=== PATIENT | female | born 1965 | race Caucasian/White ===

== ENCOUNTER → 2019-01-13 09:08 | Outpatient (CLI) | payer BC, SELFPAY ==
[2017-01-07 22:11] VITALS: BMI 40.8
[2019-01-13 10:11] LABS: Absolute Lymphocyte Count 1.13 X10^3/ul (0.83-4.51); Basophil# 0.04 X10^3/uL; Basophil% 0.9 % (0-1); Eosinophils% 2.2 % (0-5); Hematocrit 48.7 % (37-47); Hemoglobin 16.3 g/dl (12.0-15.0); Lymphocyte # 1.13 X10^3/ul (4.0); Lymphocyte % 24.3 % (19-41); Mean Corp Hgb Conc 33.5 g/gl (32-36); Mean Corpuscular Hgb 30.3 pg (27.0-32.0); Mean Corpuscular Volume 90.5 fL (81-99); Mean Platelet Vol. 9.4 fl (6.2-12.0); Monocyte# 0.38 X10^3/uL; Monocyte% 8.2 % (0-10); Neutrophil # 2.99 X10^3/uL (2.7-7.7); Neutrophil % 64.2 % (47-70); Platelet Count 222 K/mm3 (150-450); RBC Distribution Width CV 13.1 % (11.6-14.6); RBC Distribution Width SD 43.4 fl (35.1-43.9); Red Blood Count 5.38 M/mm3 (4.2-5.4); White Blood Count 4.7 K/mm3 (4.4-11.0)
[2019-01-13 10:12] LABS: POSITIVE COUNT NO; POSITIVE DIFFERENTIAL NO; POSITIVE MORPHOLOGY NO
[2019-01-13 10:47] LABS: Hemoglobin A1c 5.2 % (4.2-6.3)
[2019-01-13 11:00] LABS: BUN 20 mg/dL (7-18); Creatinine, Serum 0.54 mg/dL (0.55-1.02); EST Glomerular Filtration Rate 125 mL/min (>60); Glucose 84 mg/dL (74-106)
[2019-01-13 11:01] LABS: ALB/GLOB Ratio 1.2 RATIO (0.9-2.4); AST(SGOT) 15 U/L (15-37); Alanine Aminotransfer ALT/SGPT 24 U/L (13-56); Albumin, Serum 4.1 g/dL (3.2-5.0); Alkaline Phosphatase 96 U/L (45-117); Anion Gap 5 (5-15); BUN/Creat Ratio 37.3 RATIO (10-20); Calcium,Total 9.1 mg/dL (8.5-10.1); Chloride 106 mmol/L (98-107); Cholesterol 142 mg/dL (200); Est Glom Filt Rate - Afr Amer 152 mL/min (>60); Globulin 3.4 g/dL (2.2-4.2); High Density Lipoprotein 54 mg/dL; Potassium 4.6 mmol/L (3.5-5.1); Protein, Total 7.5 g/dL (6.4-8.2); Sodium Level 139 mmol/L (136-145); Thyroid Stim Hormone (TSH) 0.95 uIU/mL (0.358-3.74); Triglycerides 58 mg/dL; Very Low Density Lipoprotein 12 mg/dL (5-40)
== END ==
PROVIDERS: Family Provider Nurse Practitioner; PCP Nurse Practitioner; Referring Provider Registered Nurse; Visit Provider Registered Nurse
DX: R55 Syncope and collapse (principal)
CPT/HCPCS: 36415; 80053; 80061; 83036; 84443; 85025

== ENCOUNTER 2019-12-01 18:35 | Emergency (ER) | payer BC, SELFPAY ==
[2019-12-01 18:38] VITALS: BP 154/94; PULSE 78; RESP 18; TEMP 36.9; O2SAT 99; BMI 39.8
--- NOTE | 2019-12-01 19:01 | EKG12_ITS ---
Test Reason : CP Blood Pressure : / mmHG Vent. Rate : 073 BPM Atrial Rate : 073 BPM P-R Int : 134 ms QRS Dur : 084 ms QT Int : 398 ms P-R-T Axes : 011 000 043 degrees QTc Int : 438 ms Normal sinus rhythm Minimal voltage criteria for LVH, may be normal variant Cannot rule out Anterior infarct , age undetermined Abnormal ECG Confirmed by EDGAR ALONZO, PEREZ ([id number]), map editor USAMA VELAZQUEZ ([id number]) on 12/04/2019 12:55:14 PM Referred By: Confirmed By:PEREZ HERNÁNDEZ MD
--- NOTE | 2019-12-01 19:15 | RAD_ITS ---
STUDY: X-RAY CHEST REASON FOR EXAM: Female, 54 years old. Chest pain pain in the region of the left scapula. Shortness of breath. TECHNIQUE: Single AP portable view of the chest. COMPARISON: None. FINDINGS: The lungs are clear and expanded. There is no demonstrated pleural abnormality. Normal size heart. Normal mediastinum and polo. Normal visualized pulmonary arteries. Normal visualized aortic arch and descending thoracic aorta. Neck are obscured Normal visualized ribs, clavicles, and shoulders. There is no demonstrated abnormality of the visualized soft tissue structures of the upper abdomen. RAD/Chest 1 View (Portable) IMPRESSION: No acute cardiopulmonary disease. Electronically Signed: Daniel Moreno DO at 19:30 EST Tel [phone], Service support ,
[2019-12-01 19:40] LABS: Absolute Lymphocyte Count 1.35 X10^3/uL (0.83-4.51); Absolute Neutrophil Count 3.8 X10^3/uL (2.0-7.7); Basophil# 0.05 X10^3/uL; Basophil% 0.9 % (0-1); Eosinophil# 0.07 X10^3/uL; Eosinophils% 1.2 % (0-5); Hematocrit 50.5 % (37-47); Hemoglobin 16.7 g/dL (12.0-15.0); Lymphocyte # 1.35 X10^3/ul (4.0); Lymphocyte % 23.4 % (19-41); Mean Corp Hgb Conc 33.1 g/dL (32-36); Mean Corpuscular Hgb 29.3 pg (27.0-32.0); Mean Corpuscular Volume 88.6 fL (81-99); Mean Platelet Vol. 9.4 fl (6.2-12.0); Monocyte# 0.46 X10^3/uL; NRBC Flagged by Analyzer 0 % (0-5); Neutrophil # 3.84 X10^3/uL (2.7-7.7); Neutrophil % 66.3 % (47-70); Platelet Count 218 K/mm3 (150-450); RBC Distribution Width CV 13.7 % (11.6-14.6); RBC Distribution Width SD 44.2 fl (35.1-43.9); White Blood Count 5.8 K/mm3 (4.4-11.0)
[2019-12-01 20:04] LABS: Anion Gap 7 (5-15); BUN 19 mg/dL (7-18); BUN/Creat Ratio 30.7 RATIO (10-20); Calcium,Total 9.7 mg/dL (8.5-10.1); Chloride 107 mmol/L (98-107); Creatinine, Serum 0.62 mg/dL (0.55-1.02); EST Glomerular Filtration Rate 106 mL/min (>60); Est Glom Filt Rate - Afr Amer 128 mL/min (>60); Estimated Creatinine Clearance 87.49 ml/min; Glucose 89 mg/dL (74-106); Potassium 3.9 mmol/L (3.5-5.1); Sodium Level 142 mmol/L (136-145)
[2019-12-01 20:49] VITALS: BP 144/87; PULSE 81; RESP 11; O2SAT 99
--- NOTE | 2019-12-01 21:23 | CT_ITS ---
STUDY: CTA CHEST REASON FOR EXAM: Female, 54 years old. Dyspnea on exertion. RADIATION DOSAGE (If Supplied By Facility): CTDIvol = ( 12.38 ) mGy, DLP = ( 537.16 ) mGycm TECHNIQUE: The examination was performed with the intravenous administration of Isovue 370 100ml. Post-processing of the angiographic images was performed, with multiplanar reformation and 3D reconstruction. Individualized dose optimization techniques were used for this CT. COMPARISON: Chest, December 01, 2019. FINDINGS: Normal enhancement of the main pulmonary artery and right and left pulmonary arteries. Normal enhancement of the bilateral peripheral pulmonary arteries. There is no demonstrated pulmonary embolism. Normal thoracic aorta and visualized great vessels. There is no demonstrated aortic dissection. Normal heart and pericardium. Normal mediastinum. Normal hilar regions. Normal visualized trachea and bronchi. The lungs are well expanded. Normal pulmonary parenchyma. Normal pleura. Normal chest wall structures. There is a prominent left thyroid lobe which extends to the below the renal notch. Degenerative changes of the thoracic spine. Normal visualized upper abdomen. CT/CTA Chest W/WO Contrast IMPRESSION: Normal CTA chest examination, without a demonstrated pulmonary embolism or arterial dissection. Electronically Signed: Daniel Moreno DO at 22:04 EST Tel [phone], Service support ,
[2019-12-01 21:52] VITALS: PULSE 80; RESP 13
[2019-12-01] MEDS: Ipratropium/Albuterol Sulfate 3 ML AMPUL.NEB INHALATION (21:53)
[2019-12-01 22:00] VITALS: BP 148/82; PULSE 75; RESP 21; O2SAT 96
[2019-12-02] VITALS: BP 151/72; PULSE 71; RESP 12; O2SAT 99
--- NOTE | 2019-12-02 00:29 | ED.DCSUM_ITS ---
- ER Visit Summary Date of Service: 12/02/19 Chief Complaint: Shortness of breath History of Present Illness: The patient is a 54 F presents with shortness of breath that is been getting worse over the past 2 days. Patient states her breathing is worse with lying flat and improves with yawning. Patient states her blood pressures have also been running high lately. Patient denies any cough. Patient denies any sore throat. Patient denies any chest pain. Patient denies any fevers or chills. Patient denies any nausea or vomiting. Patient does admit to some tingling in her bilateral hands and face. Physical Examination: Vital signs are stable. Patient is afebrile. Patient is in no acute distress. Oral mucosa is pink and moist. Neck is supple. Trachea is midline. There is no JVD noted. Heart was regular rate and rhythm. Lungs are clear and equal bilaterally. Abdomen is soft. Bowel sounds are normal. There is no tenderness. There is no rebound or guarding noted. Skin is warm dry. Cranial nerves II through XII are intact. There are no focal motor or sensory deficits noted. Extremities are intact. There is no calf tenderness or edema. Test Results: EKG showed normal sinus rhythm with a rate of 73. There are no acute ST or T wave changes. This was unchanged compared to previous EKG dated 01/07/2017. CBC and basic metabolic profile were within normal limits. Troponin was normal. Given the patient's persistence of her symptoms, CTA of the chest was obtained. There is no evidence of PE or aortic dissection. Emergency Department Course and Treatment: Patient was given a DuoNeb here. Patient felt better on reevaluation. Patient was advised of her lab and CT findings. Patient was given a prescription for an albuterol inhaler. Patient was instructed to follow-up with her primary care physician in 5 to 7 days. Patient understood and was agreeable with the plan. All questions were answered. Disposition: Discharge home Impression: Dyspnea This note was generated with CAD Best dictation software. It may contain incorrect words, spelling, and punctuation that were not noted in review of the chart prior to signing ED Disposition - Plan for ED Patient: Disposition: Home or Assisted Living Diagnosis: Dyspnea Instructions: ED Dyspnea Prescriptions: Albuterol Inhaler [Ventolin Hfa] 1 - 2 puff INHALATION Q4H PRN PRN #1 inhaler PRN Reason: Wheezing Prescription Printed Referrals: Mar Samuels, [employer] [Primary Care Provider] - 3-5 Days
[2019-12-02 01:02] VITALS: BP 135/80; PULSE 71; RESP 17; O2SAT 94
== END 2019-12-02 01:02 | disposition home or self-care (01) ==
PROVIDERS: Emergency Provider Emergency Medicine; Family Provider Nurse Practitioner; PCP Nurse Practitioner
DX: R06.00 Dyspnea, unspecified (principal); R20.2 Paresthesia of skin; M54.9 Dorsalgia, unspecified; M54.2 Cervicalgia; E66.9 Obesity, unspecified
CPT/HCPCS: 71045; 71275; 80048; 84484; 85025; 93005; 94640; 99284; Q9967; A4216

== ENCOUNTER 2021-05-28 07:10 | Emergency (ER) | payer BC, SELFPAY ==
[2021-05-28 07:11] VITALS: BP 160/119; PULSE 84; RESP 16; TEMP 35.8; O2SAT 96; BMI 38.9
--- NOTE | 2021-05-28 07:20 | CT_ITS ---
STUDY: CT BRAIN WITHOUT CONTRAST REASON FOR EXAM: Female, 56 years old. Paresthesias RADIATION DOSAGE (If Supplied By Facility): CTDIvol = ( 44.99 ) mGy, DLP = ( 779.24 ) mGycm TECHNIQUE: Transaxial CT imaging of the brain was performed without administration of intravenous contrast material. Individualized dose optimization techniques were used for this CT. COMPARISON: No relevant priors. FINDINGS: Normal soft tissue structures. Normal calvarium. Normal size ventricles and extra-axial spaces for the patient''s age. Normal white matter tracts of the cerebral hemispheres. Normal basal ganglia and thalami. Normal brainstem. Normal cerebellum. There is no intracranial hemorrhage. There are no findings of an acute ischemic infarction. Normal visualized paranasal sinuses. CT/Brain/Head without Contrast IMPRESSION: Normal unenhanced CT scan of the brain. Electronically Signed: Luke Wilson MD at 8:03 EDT , Service support ,
--- NOTE | 2021-05-28 07:20 | EKG12_ITS ---
Test Reason : NEURO S/SX Blood Pressure : / mmHG Vent. Rate : 069 BPM Atrial Rate : 069 BPM P-R Int : 144 ms QRS Dur : 084 ms QT Int : 400 ms P-R-T Axes : 003 004 035 degrees QTc Int : 428 ms Normal sinus rhythm Normal ECG Confirmed by GLEN ALONZO, KRYSTYNA ([id number]), medical editor YEFRI FIORE ([id number]) on 06/04/2021 1:01:06 PM Referred By: SHERINE Confirmed By:KRYSTYNA CARROLL MD
--- NOTE | 2021-05-28 07:21 | EX.ED.DYSGE1 ---
HPI History of Present Illness Chief Complaint: Numb/Ting Informant: patient Onset/Context/Timing Onset: Today Current Severity: Mild Maximum Severity: Mild Narrative Narrative: Patient presents secondary to numbness and tingling in her upper body. Patient states she woke between 3 and 4 AM this morning just not quite feeling right. She states it was almost an internal anxiety feeling. She denied pain but states if anything there was some heaviness in her body. She then noticed numbness and tingling across her chest, bilateral arms, neck, and face. No difficulty speaking. No difficulty with motor control. Patient states she did have a glass of red wine just before bed last night. She felt fine at that time. She has noted increased stress for the last year and a half. [facility] Medical History (Updated 05/28/21 @ 10:[address] Bernice Sheth MD) Seasonal allergies Home Medications Ashwagandha 1 tab PO DAILY 12/01/19 [History Last Taken Unknown] glucosamine sulfate 2KCl 500 mg PO DAILY 12/01/19 [History Last Taken Unknown] loratadine 10 mg PO DAILY 12/01/19 [History Last Taken Unknown] albuterol sulfate 1 - 2 puff INHALATION Q4H PRN PRN #1 inhaler 12/02/19 [Rx Last Taken Unknown] Allergy/AdvReac Type Severity Reaction Status Date / Time Penicillins [PCN] Allergy Anaphylaxis Verified 05/28/21 07:11 Sulfa (Sulfonamide Allergy Unknown Verified 05/28/21 07:11 Antibiotics) Social History Smoking Status: Never smoker ROS ROS ED Constitutional Constitutional ED: Denies chills or fever(s) Eyes Eyes: Denies change in vision ENT ENT ED: Denies sore throat Cardiovascular Cardiovascular: Denies chest pain Respiratory/Chest Respiratory/Chest: Denies cough or dyspnea Gastrointestinal Gastrointestinal: Denies abdominal pain, diarrhea, nausea or vomiting Genitourinary Genitourinary ED: Denies dysuria Musculoskeletal Musculoskeletal: Denies back pain Integumentary Denies rash Neurologic Neurologic: Reports paresthesias; Denies headache(s) or weakness Psychiatric Psychiatric: Denies anxiety or depression Endocrine Endocrinology: Denies polydipsia or polyuria Allergic/Immunologic Allergic/Immunologic ED: Denies urticaria EXAM Physical Exam Const Vital Signs: 05/28/21 07:11 05/28/21 08:57 Temperature 96.4 F L Temperature Source Temporal Pulse Rate 84 67 Respiratory Rate 16 14 Blood Pressure 160/119 H 137/65 H Blood Pressure Mean 132 89 Pulse Ox 96 94 Oxygen Delivery Method Room Air Room Air Positive well nourished and well developed General Appearance ED: well developed HEENT Reports normocephalic and head/scalp atraumatic Eyes PERRL and EOMs intact bilaterally Neck supple Chest Wall inspection of chest normal and palpation of chest normal Resp normal respiratory effort and clear to auscultation bilaterally Cardio regular rate and regular rhythm GI normal to inspection, nondistended, normoactive bowel sounds Palpation: soft Extremity normal to inspection Neuro oriented x3 Neuro Narrative: Patient reports paresthesias with light skin palpation of the bilateral face, bilateral upper chest, bilateral arms. No motor weakness noted. Normal sensation noted of the lower extremities. Sensorium / Orientation: alert Motor Exam: strength 5/5 throughout Psych mental status grossly normal Skin no rashes or lesions noted MDM MDM MDM Narrative Medical decision making narrative: CT head, EKG, labs are obtained. Lab Data Attestation: I reviewed the patient's lab results. Labs: Laboratory Results - last 24 hr 05/28/21 05/28/21 05/28/21 07:25 07:25 09:30 WBC 5.3 RBC 5.50 H Hgb 16.3 H Hct 49.5 H MCV 90.0 MCH 29.6 MCHC 32.9 RDW Std Deviation 42.8 RDW Coeff of Brii 12.9 Plt Count 194 MPV 8.9 Immature Gran % (Auto) 0.200 Neut % (Auto) 62.4 Lymph % (Auto) 25.5 [place] % (Auto) 9.4 Eos % (Auto) 1.7 Baso % (Auto) 0.8 Absolute Neuts (auto) 3.3 Absolute Lymphs (auto) 1.36 Nucleated RBC % 0 Sodium 139 Potassium 4.1 Chloride 106 Carbon Dioxide 30.0 Anion Gap 3 L BUN 18 Creatinine 0.63 Estim Creat Clear Calc 80.52 Est GFR (MDRD) Af Amer 124 Est GFR (MDRD) Non-Af 102 BUN/Creatinine Ratio 28.4 H Glucose 94 Calcium 9.3 Troponin I High Sens 4.8 4.4 Radiography Diagnostic Testing: Radiology Impression Brain CT 05/28/21 07:20 IMPRESSION: Normal unenhanced CT scan of the brain. Electronically Signed: Luke Wilson MD at 8:03 EDT , Service support , EKG Initial EKG: Attestation: I personally reviewed and interpreted this EKG as follows: Interpretation: Sinus Rhythm (Sinus at 69 with no acute ischemia.) Prior EKG tracings: available for review Prior: Unchanged Follow-up EKG: Attestation: I personally reviewed and interpreted this EKG as follows: Interpretation: Sinus Rhythm (Sinus at 67 with no acute ischemia.) Treatment and Re-Evaluation Comments:: Patient is placed on cardiac tech. No arrhythmias noted throughout her stay. On repeat evaluation at 8:50 AM patient states her symptoms have resolved. She has no more chest heaviness or tingling. Delta troponin and EKG are obtained and remain negative. At this time patient denies any symptoms. She states that she has been trying to think about what may have been different last evening. She does state that she ate some peanuts around 10:30 PM and she has a similar type allergic reaction when she eats walnuts. She is now wondering if it may have been the knots that she ate that caused her symptoms. At this time patient be discharged home with her . Return instructions are provided. Discharge Plan Triage Chief Complaint: Numb/Ting ED Provider: Bernice Sheth Dx/Rx/DC Orders Clinical Impression: Atypical chest pain, Paresthesias Instructions: ED Chest Pain, Noncardiac, ED Paraesthesias Prescriptions: No Action Ashwagandha 1 tab PO DAILY RF: 0 glucosamine sulfate 2KCl 500 MG capsule 500 mg PO DAILY RF: 0 loratadine 10 MG capsule 10 mg PO DAILY RF: 0 albuterol sulfate 1 INHALER inhaler 1 - 2 puff inhalation Q4H PRN PRN (Reason: Wheezing) Qty: 1 RF: 0 Primary Care Provider: Mar Samuels NP Referrals: Mar Samuels NP, [employer] [Primary Care Provider] - As Needed Disposition Disposition: Home, Self Care
[2021-05-28 07:38] LABS: Absolute Lymphocyte Count 1.36 X10^3/uL (0.83-4.51); Absolute Neutrophil Count 3.3 X10^3/uL (2.0-7.7); Basophil# 0.04 X10^3/uL; Basophil% 0.8 % (0-1); Eosinophil# 0.09 X10^3/uL; Eosinophils% 1.7 % (0-5); Hematocrit 49.5 % (37-47); Hemoglobin 16.3 g/dL (12.0-15.0); Lymphocyte # 1.36 X10^3/ul (0.83-4.51); Lymphocyte % 25.5 % (19-41); Mean Corp Hgb Conc 32.9 g/dL (32-36); Mean Corpuscular Hgb 29.6 pg (27.0-32.0); Mean Platelet Vol. 8.9 fl (6.2-12.0); Monocyte% 9.4 % (0-10); NRBC Flagged by Analyzer 0 % (0-5); Neutrophil # 3.33 X10^3/uL (2.7-7.7); Neutrophil % 62.4 % (47-70); Platelet Count 194 K/mm3 (150-450); RBC Distribution Width CV 12.9 % (11.6-14.6); RBC Distribution Width SD 42.8 fl (35.1-43.9); White Blood Count 5.3 K/mm3 (4.4-11.0)
[2021-05-28 07:56] LABS: Anion Gap 3 (5-15); BUN 18 mg/dL (7-18); BUN/Creat Ratio 28.4 RATIO (10-20); Calcium,Total 9.3 mg/dL (8.5-10.1); Chloride 106 mmol/L (98-107); Creatinine, Serum 0.63 mg/dL (0.55-1.02); EST Glomerular Filtration Rate 102 mL/min (>60); Est Glom Filt Rate - Afr Amer 124 mL/min (>60); Estimated Creatinine Clearance 80.52 ml/min; Glucose 94 mg/dL (74-106); Potassium 4.1 mmol/L (3.5-5.1); Sodium Level 139 mmol/L (136-145); Troponin-I HS 4.8 pg/mL (3.0-53.7)
[2021-05-28 08:57] VITALS: BP 137/65; PULSE 67; RESP 14; O2SAT 94
--- NOTE | 2021-05-28 09:25 | EKG12_ITS ---
Test Reason : REPEAT Blood Pressure : / mmHG Vent. Rate : 067 BPM Atrial Rate : 067 BPM P-R Int : 142 ms QRS Dur : 084 ms QT Int : 414 ms P-R-T Axes : 004 002 029 degrees QTc Int : 437 ms Normal sinus rhythm Normal ECG Confirmed by GLEN ALONZO, KRYSTYNA ([id number]), publications editor YEFRI FIORE ([id number]) on 06/04/2021 1:01:16 PM Referred By: SHERINE Confirmed By:KRYSTYNA CARROLL MD
[2021-05-28 09:49] LABS: Troponin-I HS 4.4 pg/mL (3.0-53.7)
[2021-05-28 10:13] VITALS: BP 138/77; PULSE 73; RESP 14; O2SAT 99
== END 2021-05-28 10:16 | disposition home or self-care (01) ==
PROVIDERS: Emergency Provider Emergency Medicine; PCP Nurse Practitioner
DX: R07.89 Other chest pain (principal); R20.2 Paresthesia of skin
CPT/HCPCS: 70450; 80048; 84484; 85025; 93005; 99284; A4216

== ENCOUNTER 2022-09-29 08:49 | Emergency (ER) | payer BC, SELFPAY ==
[2022-09-29 08:50] VITALS: BP 153/86; PULSE 70; RESP 14; TEMP 36.4; O2SAT 99; BMI 42.0
--- NOTE | 2022-09-29 09:00 | EX.ED.DYSGE1 ---
HPI History of Present Illness Chief Complaint: Cold Sx Narrative Narrative: 57-year-old female here with concern for recent illness, shortness of breath for last 2 weeks. Noted right-sided ear and jaw pain for 1 week. Also notes left-sided lung pain with muscle aches. The patient states she had 2 weeks of constant, moderate intensity dyspnea on exertion which is accompanied by left-sided chest pain. She does note a nonproductive cough chest pain is described as sharp, not described as pressure. Is not pleuritic. She denies any vomiting. Denies any bleeding diathesis such as hemoptysis. The patient denies recent surgery in the last 4 weeks or immobilization in the last 3 days, denies previous diagnosis of DVT or PE, hemoptysis, unilateral leg swelling or malignancy with treatment the last 6 months. No estrogen use noted. Old chart reviewed: No recent ED visits or hospitalizations No recent Stress or echocardiogram noted in the system [facility] Medical History Seasonal allergies Home Medications Ashwagandha 1 tab PO DAILY 12/01/19 [History Last Taken Unknown] loratadine 10 mg capsule 10 mg PO DAILY 12/01/19 [History Last Taken Unknown] albuterol sulfate 90 mcg/actuation aerosol inhaler 1 - 2 puff inhalation Q4H PRN PRN Wheezing ##1 04/30/22 [Rx Last Taken Unknown] Allergy/AdvReac Type Severity Reaction Status Date / Time Penicillins [PCN] Allergy Anaphylaxis Verified 09/29/22 08:53 Sulfa (Sulfonamide Allergy Hives Verified 09/29/22 08:53 Antibiotics) Social History Smoking Status: Never smoker ROS ROS ED ROS Narrative Constitutional: Denies fever HEENT: Denies sore throat, positive for right ear pain Neck: Denies neck pain Cardiovascular: Positive for chest pain Respiratory: Positive for dyspnea GI: Denies nausea vomiting or abdominal pain : Denies changes in urinary habits Musculoskeletal: Positive for myalgia Neurologic: Denies numbness weakness or loss of sensation Skin denies rash EXAM Physical Exam Narrative Exam Narrative: Nursing triage notes reviewed, Vital signs reviewed Constitutional: please see mdm HENT: MMM Eyes: Pupils equal round and reactive to light, Extraocular muscles intact Neck: No stridor, no JVD, full neck ROM Lungs: Clear to auscultation, No wheezing or rales. No increased work of breathing, no conversational dyspnea, no accessory muscle use, no nasal flaring. No respiratory distress noted Heart: Regular rate and rhythm, No murmurs, No rubs and No gallops, 2+ distal pulses (radial, femoral, posterior tibial) in all extremities Abdomen: Soft, there is no tenderness, rigidity, rebound or guarding, no obvious peritoneal signs, no palpable pulsatile abdominal masses, no auscultated abdominal bruit : No CVAT Extremities: No edema Neuro: No focal neurological deficits, cranial nerves II through XII intact, 5/5 strength in all extremities. Intact sensation to light touch in all extremities, 2+ reflexes bilateral patella dens. Normal gait. No ataxia. Skin: No rash or lesions noted Const Vital Signs: 09/29/22 08:50 09/29/22 09:12 09/29/22 11:23 Temperature 97.5 F L Temperature Source Temporal Pulse Rate 70 67 Respiratory Rate 14 15 Respiratory Effort Normal Respiratory Pattern Normal Blood Pressure 153/86 H 132/74 H Blood Pressure Mean 108 Pulse Ox 99 97 Oxygen Delivery Method Room Air MDM MDM MDM Narrative Medical decision making narrative: 57-year-old female here with shortness of breath in setting of recent illness. The patient was hemodynamically stable, afebrile, nontoxic-appearing. No focal cardiopulmonary abnormalities. Concern for infectious etiology such as COVID, flu, pneumonia. Concern for ischemic etiology such as myocardial infarction. Less concerned about pulmonary embolism as patient has a low risk Wells score. Less concern for heart failure however will obtain a BNP. Obtain basic labs without anemia, electrolyte normalities, myocardial ischemia obtain chest x-ray to rule out pulmonary edema, pneumonia or signs of lung abnormalities. Will obtain a COVID and flu swab to rule out viral infectious etiologies. Labs images were remarkable for no evidence of anemia, myocardial ischemia, infectious etiology such as pneumonia or COVID, no electrolyte abnormalities. The etiology of the patient's presentation is unclear but unlikely be life-threatening given her negative work-up, stable vital signs, unremarkable labs. Told patient to follow-up with her primary care physician for further outpatient management and reevaluation the patient agreed with the plan and agreed to follow-up at the next billable appointment also agreed to return if her symptoms change or worsened in any way. PE less likely given low risk Wells score. Aortic dissection is thought to be less likely given no sudden ripping or tearing pain, migratory pain, palpable pulse inequalities, no focal neurologic deficits concurrent with chest pain. Chance of dissection less than 11/1999. Pericarditis less likely given no pathognomonic EKG changes (no diffuse ST elevations, OH depressions). GI etiology (i.e. Boerhaave syndrome) less likely given no chest or neck crepitus, no vomiting or forced retching. I completed a HEART Score to screen for Major Adverse Cardiac Event (MACE) in this patient. The evidence indicates that the patient is very low risk for MACE and this is consistent with my clinical intuition. The risk of further workup or hospitalization for MACE is likely higher than the risk of the patient having a MACE. It is, therefore, in the patient?s best interest not to do additional emergent testing or to be hospitalized for MACE at this time. Shared Decision-Making No hospitalization indicated I have discussed with the patient my clinical impression and the result of the HEART Score to screen for MACE, as well as the risks of further testing and hospitalization. The HEART Score shows that the risk for MACE is less than 1%. Although the risk of MACE has not been completely eliminated, the risks of further testing or hospitalization for MACE likely exceed any potential benefit, and the patient agrees with not pursuing further emergent evaluation or hospitalization for MACE at this time. Lab Data Labs: Laboratory Results - last 24 hr 09/29/22 09/29/22 09/29/22 09:24 09:30 09:30 WBC 5.0 RBC 5.37 Hgb 16.1 H Hct 47.4 H MCV 88.3 MCH 30.0 MCHC 34.0 RDW Std Deviation 42.9 RDW Coeff of Brii 13.3 Plt Count 197 MPV 9.2 Sodium 140 Potassium 4.2 Chloride 106 Carbon Dioxide 29.0 Anion Gap 5 BUN 21 H Creatinine 0.63 Estim Creat Clear Calc 83.03 Est GFR (MDRD) Af Amer 125 Est GFR (MDRD) Non-Af 103 BUN/Creatinine Ratio 33.4 H Glucose 100 Calcium 9.0 Troponin I High Sens 7 B-Natriuretic Peptide 85.6 Radiography Diagnostic Testing: Clinical Impression(s) from Imaging Studies Chest X-Ray 09/29/22 09:55 IMPRESSION: Normal x-ray examination of the chest. Electronically Signed: Luke Wilson MD at 10:18 EDT , EKG Initial EKG: Comments: EKG with normal sinus rhythm, left axis deviation, no STEMI Discharge Plan Triage Chief Complaint: Cold Sx ED Provider: Ector Mas Dx/Rx/DC Orders Clinical Impression: SOB (shortness of breath) Instructions: ED URI, Viral, No Abx (Adult) Prescriptions: No Action albuterol sulfate 90 mcg/actuation HFA aerosol inhaler 1 - 2 puff inhalation Q4H PRN PRN (Reason: Wheezing) Qty: 1 0RF Ashwagandha 1 tab PO DAILY loratadine 10 MG capsule 10 mg PO DAILY Primary Care Provider: Mar Samuels NP Referrals: Mar Samuels NP, MEDICAL STENOGRAPHER-C [Primary Care Provider] - Disposition Disposition: Home, Self Care Discharge Date/Time: 09/29/22 11:23
[2022-09-29 09:40] LABS: Hematocrit 47.4 % (37-47); Hemoglobin 16.1 g/dL (12.0-15.0); Mean Corpuscular Volume 88.3 fL (81-99); Mean Platelet Vol. 9.2 fl (6.2-12.0); Platelet Count 197 K/mm3 (150-450); RBC Distribution Width CV 13.3 % (11.6-14.6); RBC Distribution Width SD 42.9 fl (35.1-43.9); Red Blood Count 5.37 M/mm3 (4.2-5.4)
--- NOTE | 2022-09-29 09:55 | RAD_ITS ---
STUDY: X-RAY CHEST REASON FOR EXAM: Female, 57 years old. SOB TECHNIQUE: PA and lateral views of the chest. COMPARISON: Comparison is made with prior study dated 12/01/2019. FINDINGS: The lungs are clear and expanded. There is no demonstrated pleural abnormality. Normal size heart. Normal mediastinum and polo. Normal visualized pulmonary arteries. Normal visualized aortic arch and descending thoracic aorta. There are diffuse degenerative changes of the visualized thoracic spine. Normal visualized ribs, clavicles, and shoulders. There is no demonstrated abnormality of the visualized soft tissue structures of the upper abdomen. RAD/Chest PA and Lateral IMPRESSION: Normal x-ray examination of the chest. Electronically Signed: Luke Wilson MD at 10:18 EDT ,
[2022-09-29 10:00] LABS: Anion Gap 5 (5-15); BUN 21 mg/dL (7-18); BUN/Creat Ratio 33.4 RATIO (10-20); Chloride 106 mmol/L (98-107); Creatinine, Serum 0.63 mg/dL (0.55-1.02); EST Glomerular Filtration Rate 103 mL/min (>60); Est Glom Filt Rate - Afr Amer 125 mL/min (>60); Estimated Creatinine Clearance 83.03 ml/min; Glucose 100 mg/dL (74-106); Potassium 4.2 mmol/L (3.5-5.1); Sodium Level 140 mmol/L (136-145); Troponin-I HS 7 pg/mL (3.0-54.0)
[2022-09-29 10:29] LABS: BNP,B-Type NATRIURETIC PEPTIDE 85.6 pg/mL (0-100)
[2022-09-29 11:23] VITALS: BP 132/74; PULSE 67; RESP 15; O2SAT 97
== END 2022-09-29 11:23 | disposition home or self-care (01) ==
PROVIDERS: Emergency Provider Emergency Medicine; PCP Nurse Practitioner; Visit Provider Emergency Medicine
DX: R06.02 Shortness of breath (principal); R05.9 Cough, unspecified; M79.10 Myalgia, unspecified site
CPT/HCPCS: 71046; 80048; 83880; 84484; 85027; 87428; 93005; 99283; A4216

== ENCOUNTER 2023-05-30 00:56 | Emergency (ER) | payer BC, SELFPAY ==
[2023-05-30 00:58] VITALS: BP 157/80; PULSE 96; RESP 16; TEMP 36.4; O2SAT 99; BMI 39.2
--- NOTE | 2023-05-30 01:07 | EKG12_ITS ---
Test Reason : SYNCOPE Blood Pressure : / mmHG Vent. Rate : 074 BPM Atrial Rate : 074 BPM P-R Int : 148 ms QRS Dur : 086 ms QT Int : 400 ms P-R-T Axes : 041 000 042 degrees QTc Int : 444 ms Normal sinus rhythm with sinus arrhythmia Cannot rule out Anterior infarct , age undetermined Abnormal ECG Confirmed by NISHA ALONZO, REINA ([id number]), video effects editor USAMA VELAZQUEZ ([id number]) on 06/02/2023 11:38:54 AM Referred By: Confirmed By:YASMANY CAMERON MD
[2023-05-30 01:46] VITALS: O2SAT 99
[2023-05-30 02:28] LABS: Absolute Lymphocyte Count 1.48 X10^3/uL (0.83-4.51); Absolute Neutrophil Count 4.3 X10^3/uL (2.0-7.7); Basophil# 0.04 X10^3/uL; Basophil% 0.6 % (0-1); Eosinophils% 1.5 % (0-5); Hematocrit 44.1 % (37-47); Hemoglobin 15.2 g/dL (12.0-15.0); Lymphocyte # 1.48 X10^3/ul (0.83-4.51); Lymphocyte % 22.3 % (19-41); Mean Corp Hgb Conc 34.5 g/dL (32-36); Mean Corpuscular Volume 89.8 fL (81-99); Mean Platelet Vol. 9.1 fl (6.2-12.0); Monocyte# 0.68 X10^3/uL; Monocyte% 10.2 % (0-10); NRBC Flagged by Analyzer 0 % (0-5); Neutrophil # 4.33 X10^3/uL (2.7-7.7); Neutrophil % 65.1 % (47-70); Platelet Count 180 K/mm3 (150-450); RBC Distribution Width CV 13.5 % (11.6-14.6); RBC Distribution Width SD 44.6 fl (35.1-43.9); Red Blood Count 4.91 M/mm3 (4.2-5.4); White Blood Count 6.7 K/mm3 (4.4-11.0)
--- NOTE | 2023-05-30 02:40 | RAD_ITS ---
INDICATION: Thoracic pain EXAMINATION/TECHNIQUE: X-RAY - XR Chest 2 Views COMPARISON: 09/29/2022 FINDINGS: LINES/DEVICES: None. LUNGS: No consolidation. No pneumothorax. MEDIASTINUM: Unremarkable. CARDIAC SILHOUETTE: Not enlarged. BONES AND SOFT TISSUES: Degenerative changes of the dorsal spine. RAD/Chest PA and Lateral IMPRESSION: No evidence of active intrathoracic disease. Electronically Signed: Dayana Maciel MD at 3:00 EDT ,
[2023-05-30 02:43] LABS: D-Dimer Quantitative (DVT/PE) 0.28 FEU/ug/m (0.27-0.49)
[2023-05-30 02:55] LABS: Anion Gap 5 (5-15); BUN 15 mg/dL (7-18); BUN/Creat Ratio 22.1 RATIO (10-20); Chloride 106 mmol/L (98-107); Creatinine, Serum 0.68 mg/dL (0.55-1.02); EST Glomerular Filtration Rate 94 mL/min (>60); Est Glom Filt Rate - Afr Amer 114 mL/min (>60); Estimated Creatinine Clearance 75.97 ml/min; Glucose 108 mg/dL (74-106); Potassium 3.6 mmol/L (3.5-5.1); Sodium Level 139 mmol/L (136-145); Troponin-I HS (w/2H Reflex) 6 pg/mL (3.0-54.0)
[2023-05-30 04:25] LABS: Reflex Troponin-HS? (from REC) Y
--- NOTE | 2023-05-30 04:45 | EDS_ITS ---
HPI History of Present Illness Chief Complaint: Dizziness Informant: patient Onset/Context/Timing Onset: Days Context: Sudden Onset Timing: Intermittent Quality: Spasm Location: Posterior thoracic area Worsened by: Nothing Relieved by: Nothing Narrative Narrative: Patient presents with dizziness and thoracic back pain that has been intermittent for the past couple days. Patient states it began rather suddenly. Patient states it feels like spasm between her shoulder blades in her back. Patient states nothing makes it worse and nothing makes it better. Patient admits to some tingling in her back. Patient admits to some nausea but denies any vomiting. Patient denies any chest pain or shortness of breath. Patient states she feels lightheaded and dizzy at times. [facility] Medical History (Updated 05/30/23 @ 05:[address] Jimenez DO) Seasonal allergies Home Medications Ashwagandha 1 tab PO DAILY 12/01/19 [History Last Taken Unknown] loratadine 10 mg capsule 10 mg PO DAILY 12/01/19 [History Last Taken Unknown] albuterol sulfate 90 mcg/actuation aerosol inhaler 1 - 2 puff inhalation Q4H PRN PRN Wheezing ##1 04/30/22 [Rx Last Taken Unknown] Allergy/AdvReac Type Severity Reaction Status Date / Time Penicillins [PCN] Allergy Anaphylaxis Verified 09/29/22 08:53 Sulfa (Sulfonamide Allergy Hives Verified 09/29/22 08:53 Antibiotics) Surgical History (Updated 05/30/23 @ 04:[address] Jimenez DO) History of hysterectomy Hx of tonsillectomy Social History Smoking Status: Never smoker ROS ROS ED Constitutional Constitutional ED: Denies chills or fever(s) Eyes Eyes: Reports blurry vision; Denies diplopia ENT ENT ED: Denies rhinorrhea or sore throat Cardiovascular Cardiovascular: Denies chest pain or palpitations Respiratory/Chest Respiratory/Chest: Denies cough or dyspnea Gastrointestinal Gastrointestinal: Reports nausea; Denies vomiting Genitourinary Genitourinary ED: Denies dysuria or hematuria Musculoskeletal Musculoskeletal: Reports back pain; Denies neck pain Integumentary Denies abscess or rash Neurologic Neurologic: Denies headache(s) or weakness Allergic/Immunologic Allergic/Immunologic ED: Denies mouth swelling or urticaria EXAM Physical Exam Const Vital Signs: 05/30/23 00:58 05/30/23 01:00 05/30/23 01:46 Temperature 97.5 F L Temperature Source Temporal Pulse Rate 96 Respiratory Rate 16 Respiratory Pattern Normal Blood Pressure 157/80 H Blood Pressure Mean 105 Pulse Ox 99 99 Oxygen Delivery Method Room Air Room Air Positive well nourished, well developed and obese General Appearance ED: well developed and NAD Nutritional Appearance: obese HEENT Reports moist mucous membranes Neck supple and no JVD Resp normal respiratory effort and clear to auscultation bilaterally Cardio regular rate and regular rhythm GI normal to inspection, nondistended, normoactive bowel sounds and non-tender Palpation: soft Extremity normal to inspection General Extremety ED: Negative for edema or tenderness General Extremity: Negative for edema Neuro oriented x3, CN's II-XII intact bilaterally and no sensory deficits noted Sensorium / Orientation: alert Motor Exam: strength 5/5 throughout Psych mental status grossly normal Skin no rashes or lesions noted MDM MDM MDM Narrative Medical decision making narrative: Differential diagnosis includes thoracic strain, cardiac dysrhythmia, cardiac ischemia, pneumonia, and thoracic spasm. Patient has a Wells score of 0 and has no cardiac or PE risk factors. Therefore, I do not feel is from pulmonary embolism. EKG will be obtained to assess for cardiac dysrhythmia and cardiac ischemia. Chest x-ray will be obtained to assess for pneumonia, pneumothorax, and widened mediastinum. CBC will be obtained to assess for leukocytosis and anemia. Basic metabolic profile will be obtained to assess for electrolyte abnormality and renal function. High-sensitivity troponin will be obtained to assess for cardiac ischemia. 2-hour repeat high-sensitivity troponin will be obtained to assess for ongoing cardiac ischemia. Lab Data Attestation: I reviewed the patient's lab results. Lab results narrative: CBC was reviewed and was within normal limits. Basic metabolic profile was reviewed and was essentially within normal limits. High-sensitivity troponin was reviewed and was normal at 6. 2-hour repeat high-sensitivity troponin was reviewed and was normal at 5. Labs: Laboratory Results - last 24 hr 05/30/23 05/30/23 01:44 04:32 WBC 6.7 RBC 4.91 Hgb 15.2 H Hct 44.1 MCV 89.8 MCH 31.0 MCHC 34.5 RDW Std Deviation 44.6 H RDW Coeff of Brii 13.5 Plt Count 180 MPV 9.1 Immature Gran % (Auto) 0.300 Neut % (Auto) 65.1 Lymph % (Auto) 22.3 [place] % (Auto) 10.2 H Eos % (Auto) 1.5 Baso % (Auto) 0.6 Absolute Neuts (auto) 4.3 Absolute Lymphs (auto) 1.48 Nucleated RBC % 0 D-Dimer Quant (PE/DVT) 0.28 Sodium 139 Potassium 3.6 Chloride 106 Carbon Dioxide 28.0 Anion Gap 5 BUN 15 Creatinine 0.68 Estim Creat Clear Calc 75.97 Est GFR (MDRD) Af Amer 114 Est GFR (MDRD) Non-Af 94 BUN/Creatinine Ratio 22.1 H Glucose 108 H Calcium 9.0 Troponin I High Sens 6 5 Radiography Chest X-Ray - ED: 2 View, Read by ED Physician, Read by Radiologist and No Acute Disease Diagnostic Testing: Clinical Impression(s) from Imaging Studies Chest X-Ray 05/30/23 02:40 IMPRESSION: No evidence of active intrathoracic disease. Electronically Signed: Dayana Maciel MD at 3:00 EDT , [place] and lateral chest x-ray was obtained. There are 2 views. On my independent interpretation, lung [place] are clear. There is normal cardiac silhouette. Bony thorax is normal. There is no acute process noted. Radiologist also interpreted the x-ray and agrees. EKG Initial EKG: Attestation: I personally reviewed and interpreted this EKG as follows: Interpretation: Sinus Rhythm (74) and No Acute Injury Pattern Comments: EKG was obtained. On my independent interpretation, it showed a normal sinus rhythm with a rate of 74. MI interval, QRS interval, and QTc intervals were all normal. [place] was normal. There are no acute ST or T wave changes. Prior EKG tracings: available for review Prior: Unchanged (09/29/2022) Treatment and Re-Evaluation :: Patient is feeling better on reevaluation. Patient was advised of her findings. Patient was instructed to follow-up with her primary care physician in 5 to 7 days for further evaluation. Patient understood and was agreeable with the plan. All questions were answered. Discharge Plan Triage Chief Complaint: Dizziness ED Provider: Lane Jimenez Dx/Rx/DC Orders Clinical Impression: Acute thoracic back pain, Dizziness Instructions: ED Back Pain (Acute or Chronic), ED Dizziness, Uncertain Cause Prescriptions: No Action albuterol sulfate 90 mcg/actuation HFA aerosol inhaler 1 - 2 puff inhalation Q4H PRN PRN (Reason: Wheezing) Qty: 1 0RF Ashwagandha 1 tab PO DAILY loratadine 10 MG capsule 10 mg PO DAILY Primary Care Provider: Mar Samuels NP Referrals: Mar Samuels NP, FLOORING MACHINE OPERATOR-C [Primary Care Provider] - 5-7 Days Disposition Disposition: Home, Self Care
[2023-05-30 04:57] LABS: Troponin-I HS 5 pg/mL (3.0-54.0)
[2023-05-30 05:59] VITALS: BP 121/61; PULSE 89; RESP 18; O2SAT 99
== END 2023-05-30 05:59 | disposition home or self-care (01) ==
PROVIDERS: Emergency Provider Emergency Medicine; PCP Nurse Practitioner; Visit Provider Emergency Medicine
DX: R42 Dizziness and giddiness (principal); M54.6 Pain in thoracic spine; R11.0 Nausea
CPT/HCPCS: 71046; 80048; 84484; 85025; 85379; 93005; 99284; A4216

== ENCOUNTER 2024-04-08 00:33 | Emergency (ER) | payer BC, SELFPAY ==
[2024-04-08 00:36] VITALS: BP 128/81; PULSE 76; RESP 15; TEMP 36.6; O2SAT 99; BMI 44.4
[2024-04-08 00:41] VITALS: BP 128/81; PULSE 74; RESP 13; TEMP 36.6; O2SAT 98
--- NOTE | 2024-04-08 00:54 | EX.ED.DYSGE1 ---
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 When she was sitting at rest she felt fine. She denies chest pain, cough, congestion. She does have some slight sinus drainage. She has a history of seasonal allergies but notes they have not been bad this year. When she got home tonight she will intermittently make herself stop and consciously take a deep breath feeling like she just needs to take a deep breath. Patient denies any personal history of cardiac disease or blood clots. No known family history. She did recently drive to [place] [facility] but no further travel not. She has noted some slight swelling in her legs, left greater than right. [facility] Medical History Seasonal allergies Home Medications naproxen sodium 220 mg capsule (Aleve) 220 mg PO DAILY 06/24/23 [History Last Taken Unknown] Allergy/AdvReac Type Severity Reaction Status Date / Time walnut Allergy Severe Anaphylaxis Verified 11/21/23 11:29 Penicillins [PCN] Allergy Anaphylaxis Verified 11/21/23 11:29 Sulfa (Sulfonamide Allergy Hives Verified 11/21/23 11:29 Antibiotics) Surgical History History of hysterectomy Hx of tonsillectomy Social History adopted: No household members: spouse housing: house number of children: 8 current occupational status: employed current occupation: self current occupational exposures/hazards: No pets and animals: Yes leisure activities: other history of recent travel: No sexually active: Yes Smoking Status: Never smoker how long ago did patient quit smokin years ago alcohol intake: current details: occasionally substance use type: does not use diet: low carbohydrate well-balanced diet: about half the time caffeine: Yes eating out: 1-3 times/week during the past year weight has: decreased > 10 lbs what type of physical activity do you participate in: none irena/oriental orthodox: Orthodoxy seatbelt use: always do you feel safe at home: Yes ROS ROS ED Constitutional Constitutional ED: Denies chills or fever(s) Eyes Eyes: Denies discharge from eye(s) ENT ENT ED: Denies discharge from eye(s), rhinorrhea or sore throat Cardiovascular Cardiovascular: Denies chest pain Respiratory/Chest Respiratory/Chest: Reports dyspnea; Denies cough Gastrointestinal Gastrointestinal: Denies abdominal pain, nausea or vomiting Genitourinary Genitourinary ED: Denies dysuria Musculoskeletal Musculoskeletal: Denies back pain or extremity pain Integumentary Denies Abrasions or rash Neurologic Neurologic: Denies headache(s) or weakness Psychiatric Psychiatric: Denies anxiety or depression Allergic/Immunologic Allergic/Immunologic ED: Denies lip swelling or urticaria EXAM Physical Exam Const Vital Signs: 04/08/24 00:36 04/08/24 00:41 04/08/24 00:43 Temperature 97.9 F 97.9 F Temperature Source Oral Oral Pulse Rate 76 74 Respiratory Rate 15 13 Respiratory Effort Labored Respiratory Depth Normal Respiratory Pattern Normal Blood Pressure 128/81 H 128/81 H Blood Pressure Mean 96 96 Pulse Ox 99 98 Oxygen Delivery Method Room Air Room Air Room Air 04/08/24 01:50 04/08/24 02:26 Temperature 98.8 F Temperature Source Oral Pulse Rate 78 76 Respiratory Rate 18 14 Respiratory Effort Respiratory Depth Respiratory Pattern Blood Pressure 134/71 H Blood Pressure Mean 92 Pulse Ox 98 Oxygen Delivery Method Room Air Positive well nourished and well developed General Appearance ED: well developed HEENT Reports moist mucous membranes Eyes EOMs intact bilaterally Chest Wall inspection of chest normal and palpation of chest normal Resp normal respiratory effort and clear to auscultation bilaterally Cardio regular rate and regular rhythm GI non-tender Palpation: soft Extremity normal to inspection Neuro oriented x3 and no sensory deficits noted Motor Exam: strength 5/5 throughout Psych mental status grossly normal Skin no rashes or lesions noted MDM MDM MDM Narrative Medical decision making narrative: Patient placed on cardiac cath lab radiology technologist. IV line initiated. Labwork obtained to evaluate for leukocytosis, anemia, and electrolyte derangement. Chest x-ray obtained to evaluate for acute lung pathology, cardiac size, or mediastinal abnormality. EKG obtained to evaluate for cardiac arrhythmia/ischemia. History & Record Review Discussion w/independent historian: Patient Lab Data Attestation: I reviewed the patient's lab results. Labs: Laboratory Results - last 24 hr 04/08/24 01:04 WBC 5.8 RBC 5.10 Hgb 14.9 Hct 46.2 MCV 90.6 MCH 29.2 MCHC 32.3 RDW Std Deviation 45.7 H RDW Coeff of Brii 13.7 Plt Count 181 MPV 9.1 Immature Gran % (Auto) 0.300 Neut % (Auto) 52.2 Lymph % (Auto) 32.1 [place] % (Auto) 11.8 H Eos % (Auto) 2.6 Baso % (Auto) 1.0 Absolute Neuts (auto) 3.0 Absolute Lymphs (auto) 1.85 Nucleated RBC % 0 D-Dimer Quant (PE/DVT) 0.29 Sodium 140 Potassium 3.6 Chloride 108 H Carbon Dioxide 28.0 Anion Gap 4 L BUN 23 H Creatinine 0.63 Estim Creat Clear Calc 118.16 Est GFR (MDRD) Af Amer 124 Est GFR (MDRD) Non-Af 102 BUN/Creatinine Ratio 36.6 H Glucose 102 Calcium 8.9 Troponin I High Sens 5 Radiography Chest X-Ray - ED: 2 View, Read by ED Physician, Normal, Heart, Lungs and Mediastinum EKG Initial EKG: Attestation: I personally reviewed and interpreted this EKG as follows: Interpretation: Sinus Rhythm (Sinus at 73 with no acute ischemia.) Treatment and Re-Evaluation :: CBC was a white count of 5.8 with a hemoglobin of 14.9. Differential unremarkable. Chemistry studies normal. D-dimer is normal at 0.29. Troponin is normal at 5 with symptoms ongoing all day. I do not believe she needs a 2-hour repeat troponin. Two-view chest x-ray per my interpretation reveals no acute findings. EKG is sinus rhythm with no evidence of ischemia. Test results are discussed with the patient. She stated that she would try to find her inhaler to see if this helped. I will give her a DuoNeb treatment prior to discharge to see if this improves her subjective dyspnea. Patient is not tachypneic and has not been hypoxic on room air. After the DuoNeb treatment patient states she feels like some of the mucus in her chest loosened up and she is able to breathe easier. I will give her an albuterol inhaler to take home with her. Return instructions were provided. Discharge Plan Triage Chief Complaint: Shortness of Breath ED Provider: Bernice Sheth Dx/Rx/DC Orders Clinical Impression: Dyspnea Instructions: ED Dyspnea Prescriptions: No Action naproxen sodium [Aleve] 220 mg capsule 220 mg PO DAILY Primary Care Provider: Miley Mckeon Referrals: Miley Mckeon MD [Primary Care Provider] - 3-5 Days if not improving Disposition Disposition: Home, Self Care
[2024-04-08 01:20] LABS: Absolute Lymphocyte Count 1.85 X10^3/uL (0.83-4.51); Basophil# 0.06 X10^3/uL; Eosinophil# 0.15 X10^3/uL; Eosinophils% 2.6 % (0-5); Hematocrit 46.2 % (37-47); Hemoglobin 14.9 g/dL (12.0-15.0); Lymphocyte # 1.85 X10^3/ul (0.83-4.51); Lymphocyte % 32.1 % (19-41); Mean Corp Hgb Conc 32.3 g/dL (32-36); Mean Corpuscular Hgb 29.2 pg (27.0-32.0); Mean Corpuscular Volume 90.6 fL (81-99); Mean Platelet Vol. 9.1 fl (6.2-12.0); Monocyte# 0.68 X10^3/uL; Monocyte% 11.8 % (0-10); NRBC Flagged by Analyzer 0 % (0-5); Neutrophil # 3.01 X10^3/uL (2.7-7.7); Neutrophil % 52.2 % (47-70); Platelet Count 181 K/mm3 (150-450); RBC Distribution Width CV 13.7 % (11.6-14.6); RBC Distribution Width SD 45.7 fl (35.1-43.9); White Blood Count 5.8 K/mm3 (4.4-11.0)
--- NOTE | 2024-04-08 01:20 | RAD_ITS ---
EXAM: XR CHEST, 2 VIEWS CLINICAL INDICATION: sob TECHNIQUE: Frontal and lateral views of the chest. COMPARISON: No relevant prior studies available. FINDINGS: LUNGS AND PLEURAL SPACES: Unremarkable. No consolidation or edema. No pneumothorax. No effusion. HEART: Unremarkable. Cardiac silhouette not enlarged. MEDIASTINUM: Central airways and mediastinal contour are unremarkable. BONES/JOINTS: Degenerative changes of the spine. Degenerative changes of the acromioclavicular joints. No acute fracture. SOFT TISSUES: Unremarkable. RAD/Chest PA and Lateral IMPRESSION: No acute disease. Electronically Signed: Ziggy Hernandez MD at 2:40 EDT ,
[2024-04-08 01:35] LABS: Anion Gap 4 (5-15); BUN 23 mg/dL (7-18); BUN/Creat Ratio 36.6 RATIO (10-20); Calcium,Total 8.9 mg/dL (8.5-10.1); Chloride 108 mmol/L (98-107); Creatinine, Serum 0.63 mg/dL (0.55-1.02); EST Glomerular Filtration Rate 102 mL/min (>60); Est Glom Filt Rate - Afr Amer 124 mL/min (>60); Estimated Creatinine Clearance 118.16 ml/min; Glucose 102 mg/dL (74-106); Potassium 3.6 mmol/L (3.5-5.1); Sodium Level 140 mmol/L (136-145); Troponin-I HS 5 pg/mL (3.0-54.0)
[2024-04-08 01:36] LABS: D-Dimer Quantitative (DVT/PE) 0.29 FEU/ug/m (0.27-0.49)
[2024-04-08 01:50] VITALS: BP 134/71; PULSE 78; RESP 18; TEMP 37.1; O2SAT 98
[2024-04-08] MEDS: Ipratropium/Albuterol Sulfate 3 ML AMPUL.NEB INHALATION (02:25)
[2024-04-08 02:26] VITALS: PULSE 76; RESP 14
[2024-04-08] MEDS: Albuterol Sulfate 8 gm Inhaler (60 puffs) 2 PUFF INHALATION (02:53)
[2024-04-08] MEDS: INHALER, ASSIST DEVICES 1 EACH SPACER INHALATION (02:54)
[2024-04-08 02:55] VITALS: BP 132/63; BP 132/94; PULSE 77; PULSE 78; RESP 12; RESP 18; TEMP 36.5; O2SAT 96; O2SAT 98
== END 2024-04-08 02:59 | disposition home or self-care (01) ==
PROVIDERS: Emergency Provider Emergency Medicine; PCP Internal Medicine; Visit Provider Emergency Medicine
DX: R06.00 Dyspnea, unspecified (principal); Z90.710 Acquired absence of both cervix and uterus
CPT/HCPCS: 71046; 80048; 84484; 85025; 85379; 93005; 94640; 99284; A4216

== ENCOUNTER → 2024-05-25 | Outpatient (CLI) | payer BC, SELFPAY ==
[2024-05-25 14:38] LABS: Absolute Lymphocyte Count 1.35 X10^3/uL (0.83-4.51); Absolute Neutrophil Count 3.1 X10^3/uL (2.0-7.7); Basophil# 0.05 X10^3/uL; Eosinophil# 0.13 X10^3/uL; Eosinophils% 2.5 % (0-5); Hematocrit 48.9 % (37-47); Hemoglobin 15.9 g/dL (12.0-15.0); Lymphocyte # 1.35 X10^3/ul (0.83-4.51); Lymphocyte % 26.3 % (19-41); Mean Corp Hgb Conc 32.5 g/dL (32-36); Mean Corpuscular Hgb 29.2 pg (27.0-32.0); Mean Corpuscular Volume 89.7 fL (81-99); Mean Platelet Vol. 9.1 fl (6.2-12.0); Monocyte# 0.49 X10^3/uL; Monocyte% 9.6 % (0-10); NRBC Flagged by Analyzer 0 % (0-5); Neutrophil # 3.09 X10^3/uL (2.7-7.7); Neutrophil % 60.2 % (47-70); Platelet Count 202 K/mm3 (150-450); RBC Distribution Width CV 13.5 % (11.6-14.6); RBC Distribution Width SD 44.1 fl (35.1-43.9); Red Blood Count 5.45 M/mm3 (4.2-5.4); White Blood Count 5.1 K/mm3 (4.4-11.0)
[2024-05-25 15:28] LABS: Hemoglobin A1c 5.1 % (3.8-5.6)
[2024-05-25 15:32] LABS: ALB/GLOB Ratio 1.1 RATIO (0.9-2.4); AST(SGOT) 19 U/L (15-37); Alanine Aminotransfer ALT/SGPT 28 U/L (13-56); Albumin, Serum 4.1 g/dL (3.2-5.0); Alkaline Phosphatase 97 U/L (45-117); Anion Gap 5 (5-15); BUN 19 mg/dL (7-18); BUN/Creat Ratio 27.9 RATIO (10-20); Calcium,Total 9.5 mg/dL (8.5-10.1); Chloride 105 mmol/L (98-107); Cholesterol 179 mg/dL (200); Creatinine, Serum 0.68 mg/dL (0.55-1.02); EST Glomerular Filtration Rate 93 mL/min (>60); Est Glom Filt Rate - Afr Amer 113 mL/min (>60); Globulin 3.6 g/dL (2.2-4.2); Glucose 96 mg/dL (74-106); High Density Lipoprotein 63 mg/dL; Potassium 4.3 mmol/L (3.5-5.1); Protein, Total 7.7 g/dL (6.4-8.2); Sodium Level 139 mmol/L (136-145); T4 Free Direct 1.29 ng/dL (0.76-1.46); Thyroid Stim Hormone (TSH) 0.96 uIU/mL (0.358-3.74); Triglycerides 114 mg/dL; Very Low Density Lipoprotein 23 mg/dL (5-40)
== END | disposition home or self-care (01) ==
LOC: LAB 13:51
PROVIDERS: PCP Internal Medicine; Visit Provider Internal Medicine
DX: Z00.00 Encounter for general adult medical examination without abnormal findings (principal); Z13.220 Encounter for screening for lipoid disorders; E55.9 Vitamin D deficiency, unspecified; R73.9 Hyperglycemia, unspecified; M17.0 Bilateral primary osteoarthritis of knee; R07.89 Other chest pain
CPT/HCPCS: 36415; 80053; 80061; 82306; 83036; 84439; 84443; 84481; 85025

== ENCOUNTER → 2025-09-07 | Outpatient (CLI) | payer BC, SELFPAY ==
[2025-09-07 15:12] LABS: Hematocrit 49.0 % (37-47); Hemoglobin 16.5 g/dL (12.0-15.0); Immature Granulocytes Count 0.010 X10^3/uL (0.0-0.0); Mean Corp Hgb Conc 33.7 g/dL (32-36); Mean Corpuscular Volume 88.0 fL (81-99); Mean Platelet Vol. 9.4 fl (6.2-12.0); NRBC Flagged by Analyzer 0 % (0-5); Platelet Count 202 K/mm3 (150-450); RBC Distribution Width CV 13.4 % (11.6-14.6); RBC Distribution Width SD 43.2 fl (35.1-43.9); Red Blood Count 5.57 M/mm3 (4.2-5.4); White Blood Count 4.7 K/mm3 (4.4-11.0)
[2025-09-07 15:27] LABS: AST(SGOT) 28 U/L (<=31); Alanine Aminotransfer ALT/SGPT 34 U/L (<=34); Albumin, Serum 4.3 g/dL (3.4-4.8); Alkaline Phosphatase 84 U/L (35-104); Anion Gap 9 (5-15); BUN 17 mg/dL (4-19); BUN/Creat Ratio 30.5 RATIO (10-20); Calcium,Total 9.6 mg/dL (7.6-11.0); Carbon Dioxide 27.2 mmol/L (21.0-32.0); Chloride 104 mmol/L (98-108); Cholesterol 167 mg/dL (<=200); Globulin 3.0 g/dL (2.2-4.2); Glucose 86 mg/dL (70-99); Low Density Lipoprotein Calc. 96 mg/dL; Potassium 4.5 mmol/L (3.3-5.1); Triglycerides 75 mg/dL; Very Low Density Lipoprotein 15 mg/dL (5-40); cholesterol:hdl ratio screen 2.96
== END | disposition home or self-care (01) ==
LOC: MTLAB 11:38
PROVIDERS: PCP Internal Medicine; Referring Provider Internal Medicine; Visit Provider Internal Medicine
DX: Z00.00 Encounter for general adult medical examination without abnormal findings (principal); F32.A Depression, unspecified; Z13.220 Encounter for screening for lipoid disorders
CPT/HCPCS: 36415; 80053; 80061; 84443; 85025